=== PATIENT | male | born 1995 | race Caucasian/White ===

== ENCOUNTER 2018-08-30 06:33 | Emergency (ER) | payer MEDICAID ==
[~2018-08-30] VITALS: Ht 172.7 cm; Wt 90.7 kg
[2018-08-30 06:35] VITALS: BP_SYST 146
[2018-08-30] MEDS ORDERED: DIPH-TET-PERTUS Vaccine 0.5 ML VIAL (ADACEL) IM ONE (07:00)
[2018-08-30] MEDS ORDERED: AMOXICILLIN/CLAVULANATE POTASSIUM 875 MG TABLET PO ONE (07:00)
[2018-08-30] MEDS ORDERED: BACITRACIN 1 GM OINT TP ONE (07:00)
[2018-08-30 07:09] VITALS: BP_SYST 146
== END 2018-08-30 07:10 ==
LOC: SED 06:33
DX: S30.811A Abrasion of abdominal wall, initial encounter (principal); S20.312A Abrasion of left front wall of thorax, initial encounter; S30.810A Abrasion of lower back and pelvis, initial encounter; Y04.1XXA Assault by human bite, initial encounter; Y93.89 Activity, other specified; Y92.89 Other specified places as the place of occurrence of the external cause; Y99.8 Other external cause status
CPT/HCPCS: 90715; 99283